=== PATIENT | male | born 1990 | race African-American/Black ===

== ENCOUNTER 2016-06-28 15:14 | Emergency (ER) | payer OTHER ==
[~2016-06-28] VITALS: Ht 170.2 cm; Wt 76.7 kg
[2016-06-28 15:21] VITALS: TEMP 37; Ht 170.2 cm; Wt 76.7 kg
[2016-06-28] MEDS ORDERED: DIVALPROEX 500 MG EXTENDED RELEASE TAB PO ONE (15:45)
[2016-06-28 15:55] VITALS: O2SAT 98
[2016-06-28 16:29] LABS: BASO % 0.9 %; BASO ABS # 0.05 K/uL (0-0.2); COMPLETE YES; EOS % 6.6 %; HEMATOCRIT 46.9 % (42-52); IG% 0.5 %; LYMPH % 29.5 %; LYMPH ABS # 1.62 K/uL (1.2-3.4); MEAN CELL VOLUME 87.2 fL (80-100); MEAN CORPUSCULAR HEMOGLOBIN 28.8 pg (25-34); MEAN PLATELET VOLUME 9.7 fL (7.4-10.4); MONO % 13.8 %; NEUT % 48.7 %; PLATELET COUNT 279 K/uL (130-400); RED BLOOD COUNT 5.38 M/uL (4.7-6.1); WHITE BLOOD COUNT 5.49 K/uL (4.8-10.8)
[2016-06-28 16:40] LABS: URINE APPEARANCE CLEAR (CLEAR); URINE BILIRUBIN NEG (NEG); URINE COLOR YELLOW; URINE NITRITE NEG (NEG); URINE PH 8.5 (4.5-7.5); URINE SPECIFIC GRAVITY 1.023 (1.000-1.030); UROBILINOGEN NEG (NEG)
[2016-06-28] MEDS ORDERED: DIVA250T PO ×2 (16:45→19:41)
[2016-06-28] MEDS ORDERED: EPP3/2 IM (16:45)
[2016-06-28] MEDS ORDERED: Ventolin HFA INH (16:45)
[2016-06-28 16:46] LABS: PARTIAL THROMBOPLASTIN RATIO 1.3; PROTHROMBIN TIME (PATIENT) 11.2 SECONDS (9.0-12.0)
[2016-06-28 16:59] LABS: MANUAL MICROSCOPIC REQUIRED? NO; REVIEW REQ? NO
[2016-06-28 17:18] LABS: BUN/CREATININE RATIO 12.3 (10-20); CALCIUM 8.8 mg/dl (8.5-10.1); CREATININE 0.99 mg/dl (0.60-1.40); MAGNESIUM 2.2 mg/dl (1.8-2.4); PHOSPHORUS 2.1 mg/dl (2.5-4.9); POTASSIUM 4.1 mmol/L (3.5-5.1); THYROID STIMULATING HORMONE 0.98 uIu/ml (0.300-4.500)
[2016-06-28] MEDS ORDERED: DIVALPROEX SODIUM 250 MG DELAY REL TAB PO ONE (19:45)
[2016-06-28 20:00] VITALS: BP 117/55; PULSE 71; O2SAT 98
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
[2016-07-02 01:40] LABS: CHLAMYDIA TRACH RNA*** NOT DETECTED (NOT DETECTED); GC (NEIS GONORRHOEAE)RNA** NOT DETECTED (NOT DETECTED)
== END 2016-06-28 20:22 | disposition home or self-care (01) ==
LOC: C.EDB 15:16 → C.EDC 20:22
DX: G40.909 Epilepsy, unspecified, not intractable, without status epilepticus (principal); Z11.3 Encounter for screening for infections with a predominantly sexual mode of transmission; Z79.899 Other long term (current) drug therapy; Z88.1 Allergy status to other antibiotic agents; Z88.8 Allergy status to other drugs, medicaments and biological substances; F17.200 Nicotine dependence, unspecified, uncomplicated